=== PATIENT | female | born 1955 | race Caucasian/White ===

== ENCOUNTER 2023-01-31 10:30 | Outpatient (RCR) | payer OTHER, SELFPAY | END 2023-01-31 23:59 | disposition home or self-care (01) | LOC: RPT 10:30 | PROVIDERS: ATTENDING PHYSICIAN Family Medicine; FAMILY PHYSICIAN Family Medicine | DX: M54.16 Radiculopathy, lumbar region (principal); M70.62 Trochanteric bursitis, left hip | CPT/HCPCS: 97010; 97110; 97112; 97140; 97162 ==